=== PATIENT | female | born 1955 | race Caucasian/White ===

== ENCOUNTER 2018-06-11 16:47 | Emergency (ER) | payer OTHER ==
[2018-06-11] MEDS ORDERED: BUPIVACAINE 0.5% PF 10 ML VIAL ONE (18:15)
--- NOTE | 2018-06-11 19:15 | EDPHYS ---
Physician Documentation [facility] Name: Bere Stein Age: 62 yrs Sex: Female : 1955 Arrival Date: 06/11/2018 Time: 16:52 Bed 20 Private MD: González Massey ED Physician Genaro Rutledge HPI: 06/11 17:58 This 62 yrs old Female presents to ER via Ambulatory with complaints of jmm Laceration - FINGER. 17:58 The patient or guardian reports injury, a laceration. Onset: The symptoms/episode jmm began/occurred acutely, just prior to arrival. Associated signs and symptoms:. This is a 62 year old female that presents to the ED with a laceration to her right 4th finger after accidently cutting it on a mandolin slicer. Patient unable to control bleeding at home. . Historical: - Allergies: 17:01 GABAPENTIN; aj1 - Home Meds: 17:01 losartan 125 mg oral tab 1 tab once daily [Active]; levothyroxine 100 mcg oral tab aj1 [Active]; - PMHx: 17:01 Hypertension; Hypothyroidism; aj1 - Immunization history:: Flu vaccine is up to date. - Social history:: Smoking status: Patient uses tobacco products, smokes one-half pack cigarettes per day. - Ebola Screening: : Patient denies travel to an Ebola-affected area in the 21 days before illness onset. ROS: 17:58 Constitutional: Negative for fever, chills, and weight loss, Eyes: Negative for injury, jmm pain, redness, and discharge, Cardiovascular: Negative for chest pain, palpitations, and edema, Respiratory: Negative for shortness of breath, cough, wheezing, and pleuritic chest pain. 17:58 MS/extremity: Positive for laceration. 17:58 Skin: Positive for laceration(s). 17:58 All other systems are negative. Exam: 17:58 Constitutional: This is a well developed, well nourished patient who is awake, alert, jmm and in no acute distress. Head/Face: atraumatic. Eyes: EOMI, no conjunctival erythema appreciated ENT: Moist Mucus Membranes Neck: Trachea midline, Supple Chest/axilla: Normal chest wall appearance and motion. Cardiovascular: Regular rate and rhythm. No edema appreciated Respiratory: Normal respirations, no respiratory distress appreciated Abdomen/GI: Non distended, soft Back: Normal ROM 17:58 Musculoskeletal/extremity: ROM: intact in all extremities, FROM apprecaited to the right 4th finger, < 2 sec distal cap refill, NVI. 17:58 Skin: injury, laceration(s), the wound is approximately 1.5 cm(s), of the palmar aspect of distal phalanx of right ring finger. 17:58 Neuro: Orientation: is normal, Mentation: is normal, Memory: is normal. 17:58 Psych: Behavior/mood is pleasant, cooperative. Vital Signs: 17:01 BP 145 / 72; Pulse 72; Resp 18; Temp 98.3; Pulse Ox 98% on R/A; Weight 97.07 kg (R); aj1 Height 5 ft. 11 in. (180.34 cm) (R); Pain 0/10; 19:19 BP 144 / 77; Pulse 65; Resp 18; Pulse Ox 98% on R/A; jb4 17:01 Body Mass Index 29.85 (97.07 kg, 180.34 cm) aj1 Laceration: 19:11 Wound Repair of 1.5cm ( 0.6in ) subcutaneous laceration to palmar aspect of distal jmm phalanx of right ring finger. Distal neuro/vascular/tendon intact. Anesthesia: Digital block administered with 3 mls of 0.5% marcaine. Wound prep: Moderate cleansing with betadine by wy. Skin closed with 6 5-0 Prolene using simple sutures and sterile technique. Dressed with non-adherent dressing. Patient tolerated well. MDM: 17:[address] [facility] 19:11 Data reviewed: vital signs, nurses notes. [facility] 19:12 Counseling: I had a detailed discussion with the patient and/or guardian regarding: the [facility] historical points, exam findings, and any diagnostic results supporting the discharge/admit diagnosis, the need for outpatient follow up, to return to the emergency department if symptoms worsen or persist or if there are any questions or concerns that arise at home. ED course: Patient refuised tetanus immunization. Will update tomorrow outpatient. Patient given wound infection return precautions. Patient understood and agrees with the plan of care. . Administered Medications: 18:40 Drug: Marcaine (0.5 %) 10 ml {Note: administered per LAUREANO Cage.} Volume: 10 ml; Route: em Infiltration; Disposition: 06/11/18 19:14 Discharged to Home. Impression: Finger Laceration. - Condition is Stable. - Discharge Instructions: Laceration Care, Adult. - Medication Reconciliation Form, Thank You Letter, Antibiotic Education, Prescription Opioid Use form. - Follow up: González Massey MD; When: 5 - 6 days; Reason: Recheck today's complaints, Continuance of care, Re-evaluation by your physician. Addendum: 06/16/2018 01:28 Co-signature as Attending Physician, Genaro Rutledge MD. g s Signatures: Dispatcher [employer] EDKhalida Wheeler, RN RN aj1 Niles Sorto PA PA jmm Munoz, Edgar, DESIGN EDITOR DESIGN EDITOR Ez Martinez RN RN jb4 Genaro Rutledge MD MD gs Corrections: (The following items were deleted from the chart) 06/11 19:20 19:14 06/11/2018 19:14 Discharged to Home. Impression: Finger Laceration. Condition is jb4 Stable. Forms are Medication Reconciliation Form, Thank You Letter, Antibiotic Education, Prescription Opioid Use. Follow up: González Masesy; When: 5 - 6 days; Reason: Recheck today's complaints, Continuance of care, Re-evaluation by your physician. dottie
--- NOTE | 2018-06-11 19:15 | ER ---
Nurse's Notes [facility] Name: Bere Stein Age: 62 yrs Sex: Female : 1955 Arrival Date: 06/11/2018 Time: 16:52 Bed 20 Private MD: González Massey Diagnosis: Finger Laceration Presentation: 06/11 16:58 Presenting complaint: Patient states: She was cutting potatoes with a Mandolin and she aj1 accidentally cut her right ring finger. Laceration noted to right ring finger, bleeding lightly. Transition of care: patient was not received from another setting of care. Complicating Factors: There are no complicating factors for this patient. Onset of symptoms was June 11, 2018 at 16:30. Risk Assessment: Do you want to hurt yourself or someone else?. Initial Sepsis Screen: Does the patient meet any 2 criteria? No. Patient's initial sepsis screen is negative. Does the patient have a suspected source of infection? No. Patient's initial sepsis screen is negative. Care prior to arrival: None. 16:58 Method Of Arrival: Ambulatory aj1 16:58 Acuity: CELESTE 4 aj1 Triage Assessment: 17:01 General: Appears in no apparent distress. comfortable, Behavior is calm, cooperative, aj1 appropriate for age. Pain: Denies pain. Neuro: Level of Consciousness is awake, alert, obeys commands. Cardiovascular: Patient's skin is warm and dry. Respiratory: Airway is patent Respiratory effort is even, unlabored, Respiratory pattern is regular, symmetrical. Musculoskeletal: Range of motion: intact in all extremities. Injury Description: Laceration sustained to palmar aspect of distal phalanx of right ring finger is 0.5 to 2.5 cm long, is bleeding a small amount. Historical: - Allergies: 17:01 GABAPENTIN; aj1 - Home Meds: 17:01 losartan 125 mg oral tab 1 tab once daily [Active]; levothyroxine 100 mcg oral tab aj1 [Active]; - PMHx: 17:01 Hypertension; Hypothyroidism; aj1 - Immunization history:: Flu vaccine is up to date. - Social history:: Smoking status: Patient uses tobacco products, smokes one-half pack cigarettes per day. - Ebola Screening: : Patient denies travel to an Ebola-affected area in the 21 days before illness onset. Screenin:17 Abuse screen: Denies threats or abuse. Nutritional screening: No deficits noted. em Tuberculosis screening: No symptoms or risk factors identified. Fall Risk None identified. Assessment: 18:17 General: Appears in no apparent distress. comfortable, Behavior is calm, cooperative. em Pain: Denies pain. Neuro: Level of Consciousness is awake, alert, obeys commands, Oriented to person, place, time, situation. Respiratory: Airway is patent Respiratory effort is even, unlabored, Respiratory pattern is regular, symmetrical. Musculoskeletal: Circulation, motion, and sensation intact. Range of motion: intact in all extremities, Swelling absent. Injury Description: Laceration sustained to palmar aspect of distal phalanx of right ring finger is clean, 0.5 to 2.5 cm long, not bleeding, was sustained 1-2 hours ago. 18:20 General: The previous assessment is accurate, call light remains within reach. . ss 19:19 Reassessment: Patient appears in no apparent distress at this time. Patient and/or jb4 family updated on plan of care and expected duration. Pain level reassessed. Patient is alert, oriented x 3, equal unlabored respirations, skin warm/dry/pink. Cardiovascular: Patient's skin is warm and dry. Vital Signs: 17:01 BP 145 / 72; Pulse 72; Resp 18; Temp 98.3; Pulse Ox 98% on R/A; Weight 97.07 kg (R); aj1 Height 5 ft. 11 in. (180.34 cm) (R); Pain 0/10; 19:19 BP 144 / 77; Pulse 65; Resp 18; Pulse Ox 98% on R/A; jb4 17:01 Body Mass Index 29.85 (97.07 kg, 180.34 cm) aj1 ED Course: 16:52 Patient arrived in ED. sb2 16:54 González Massey MD is Private Physician. sb2 17:00 Triage completed. aj1 17:01 Arm band placed on Patient placed in waiting room, Patient notified of wait time. aj 17:42 Niles Sorto PA is PHCP. [facility] 17:42 Genaro Rutledge MD is Attending Physician. [facility] 18:17 Patient has correct armband on for positive identification. Bed in low position. Call em light in reach. Adult w/ patient. 18:41 Florian Louie LVN is Primary Nurse. em 18:50 Assist provider with laceration repair on palmar aspect of distal phalanx of right ring em finger that was 2.5 cm. or less using sutures. Set up tray. Performed by Niles ESPINOZA Dressed with 4X4s, Neosporin, Patient tolerated well. 19:13 González Massey MD is Referral Physician. [facility] 19:19 Patient did not have IV access during this emergency room visit. jb4 Administered Medications: 18:40 Drug: Marcaine (0.5 %) 10 ml {Note: administered per LAUREANO Cage.} Volume: 10 ml; Route: em Infiltration; Outcome: 19:14 Discharge ordered by MD. [facility] 19:19 Discharged to home ambulatory, with family. jb4 19:19 Condition: stable 19:19 Discharge instructions given to patient, family, Instructed on discharge instructions, follow up and referral plans. Demonstrated understanding of instructions, follow-up care. 19:20 Patient left the ED. jb4 Signatures: Khalida Whittaker, RN RN aj1 Niles Sorto PA PA [facility] Florian Louie, [employer] PATIENT NAVIGATOR em Emilia Collazo, RN RN Ez Gonzalez RN RN jb4 Shayna Yi2
== END 2018-06-11 19:20 | disposition home or self-care (01) ==
LOC: ER 16:47
PROC: 0JQJ0ZZ Repair Right Hand Subcutaneous Tissue and Fascia, Open Approach (ICD-10-PCS; principal; 2018-06-11)
DX: S61.214A Laceration without foreign body of right ring finger without damage to nail, initial encounter (principal); W45.8XXA Other foreign body or object entering through skin, initial encounter; Y93.89 Activity, other specified; Y92.9 Unspecified place or not applicable; Z88.8 Allergy status to other drugs, medicaments and biological substances; I10 Essential (primary) hypertension; E03.9 Hypothyroidism, unspecified; F17.210 Nicotine dependence, cigarettes, uncomplicated
CPT/HCPCS: 99283